=== PATIENT | male | born 1960 | race African-American/Black ===

== ENCOUNTER → 2017-04-02 | Outpatient (CLI) | payer OTHER ==
--- NOTE | 2017-04-02 18:48 | RADIOLOGY REPORT (SQ) ---
EXAM DESCRIPTION: CT CHEST WITH; CT ABD/PELVIS WITH IV ONLY COMPLETED DATE/TIME: 04/02/2017 3:19 pm REASON FOR STUDY: ABN WEIGHT LOSS R63.4 ABNORMAL WEIGHT LOSS COMPARISON: 01/12/2014 TECHNIQUE: CT scan of the chest performed with intravenous contrast using helical scanning technique . Images reviewed with lung, soft tissue and bone windows. Reconstructed coronal and sagittal MPR im ages reviewed. All images stored on PACS. Patient was injected with 76 mL of IV Isovue 370 without complication. Patient's creatinine is 0.8. CT scan of the abdomen and pelvis performed without intravenous contrast and withoutoral contrast usi ng helical scanning technique with dynamic intravenous contrast injection. Images reviewed with lung , soft tissue and bone windows. Reconstructed coronal and sagittal MPR images reviewed. All images stored on PACS. All CT scanners at this facility use dose modulation, iterative reconstruction, and/or weight based d osing when appropriate to reduce radiation dose to as low as reasonably achievable (ALARA). [facility]: Dose Right [facility]: CareDose [facility]: Dose Right [facility]: Teradose 4D [facility]: Sentisis RADIATION DOSE: CT Rad equipment meets quality standard of care and radiation dose reduction techniq ues were employed. CTDIvol: 4.4 - 4.5 mGy. DLP: 591 mGy-cm. mGy. LIMITATIONS: No oral contrast FINDINGS: CHEST: AXILLAE: No adenopathy. CHEST WALL: No masses. No subcutaneous air. LUNGS: No nodules or masses. No pneumothorax. No infiltrates. PLEURA: No effusions. No calcifications. THYROID: No masses or significant asymmetry. HILAR AND MEDIASTINAL STRUCTURES: No identified masses or abnormal nodes. AORTA AND GREAT VESSELS: No aneurysm. HEART: No pericardial effusion. HARDWARE AND LIFELINES: None. BONES: No significant finding. OTHER: No other significant finding. ABDOMEN AND PELVIS: LIVER: Normal size. No masses. No dilated ducts. SPLEEN: Normal size. No focal lesions. PANCREAS: No masses. No significant calcifications. No adjacent inflammation or peripancreatic flui d collections. Pancreatic duct not dilated. GALLBLADDER: No identified stones by CT criteria. No inflammatory changes to suggest cholecystitis. ADRENAL GLANDS: No significant masses or asymmetry. RIGHT KIDNEY AND URETER: No solid masses. No cysts. No significant calcifications. No hydronephr osis or hydroureter. LEFT KIDNEY AND URETER: No solid masses. Left midpole 1.5 cm simple cyst. No significant calcifica tions. No hydronephrosis or hydroureter. AORTA AND VESSELS: No aneurysm. No abdominal aortic dissection. Bilateral duplicated renal arteries , an anatomic variant. About 50% narrowing proximal right common iliac artery on coronal reconstruct ion image 32 RETROPERITONEUM: No retroperitoneal adenopathy, hemorrhage or masses. Benign cisterna Chyli between the aorta and vena cava at the level of the renal veins, 2.5 x 1.5 cm in size, unchanged from 2014 APPENDIX: Normal. LARGE AND SMALL BOWEL: No dilatation. No masses. No wall thickening. ABDOMINAL WALL: No hernia or masses. PERITONEAL CAVITY: No free air. No free fluid. No peritoneal implants or masses. PELVIS: No mass or free fluid. Normal bladder. BONES: No significant or acute findings. OTHER: No other significant finding. IMPRESSION: No CT findings over the chest abdomen or pelvis to explain history of abnormal weight lo ss TECHNICAL DOCUMENTATION: JOB ID: [id number] Quality ID # [id number]: Final reports with documentation of one or more dose reduction techniques (e.g., Au tomated exposure control, adjustment of the mA and/or kV according to patient size, use of iterative reconstruction technique) 2010 [employer].- All Rights Reserved
== END ==
LOC: RAD 14:22
PROVIDERS: ATTEND Internal Medicine
DX: R63.4 Abnormal weight loss (principal)
CPT/HCPCS: 71260; 74177; 82565

== ENCOUNTER → 2017-04-10 | Outpatient (CLI) | payer OTHER ==
--- NOTE | 2017-04-10 13:31 | RADIOLOGY REPORT (SQ) ---
EXAM DESCRIPTION: NM WHOLE BODY BONE SCAN COMPLETED DATE/TIME: 04/10/2017 12:25 pm REASON FOR STUDY: ABN WEIGHT LOSS (R63.4) R63.4 ABNORMAL WEIGHT LOSS COMPARISON: CT abdomen pelvis 01/12/2014, 04/02/2017, CT chest 04/02/2017 RADIONUCLIDE AND DOSE: 22 millicuries Tc99m HDP. The route of agent administration: Intravenous. ADDITIONAL DRUGS AND DOSES: None. TECHNIQUE: Routine delayed images at 3 hours post radionuclide injection acquired of the bony skelet on including anterior and posterior whole-body projections and additional focused images as needed. LIMITATIONS: None. FINDINGS: BONES: Normal visualization without areas of photopenia or increased bony uptake of radiop harmaceutical. KIDNEYS: Symmetric excretion without obstruction. OTHER: No other significant finding. IMPRESSION: NORMAL BONE SCAN. COMMENT: Quality measure 147: Current bone scan is compared with any available plain radiographs, p rior bone scans, and CT/MRI. TECHNICAL DOCUMENTATION: JOB ID: [id number] [employer] All Rights Reserved Reading location - IP/workstation name: [facility]-[email or web address]
== END ==
LOC: RAD 08:07
PROVIDERS: ATTEND Internal Medicine
DX: R63.4 Abnormal weight loss (principal)
CPT/HCPCS: 78306; A9561; Q9969

== ENCOUNTER 2019-12-24 17:09 | Emergency (ER) | payer OTHER ==
[2019-12-24 17:18] VITALS: BP 153/85
[2019-12-24] MEDS ORDERED: PENICILLIN V POTASSIUM 500 MG TABLET PO ONE (17:30)
[2019-12-24] MEDS ORDERED: IBUPROFEN 600 MG TABLET PO ONE (17:30)
[2019-12-24] MEDS ORDERED: LIDOCAINE 2% VISCOUS SOLN 15 ML UDCUP PO ONE (17:30)
--- NOTE | 2019-12-24 17:33 | ER Document Report ---
ED Oral Problem - General Chief Complaint: Toothache Stated Complaint: MOUTH PAIN Time Seen by Provider: 12/24/19 17:25 Primary Care Provider: JAILYN JOSE MD [Primary Care Provider] - Follow up as needed Mode of Arrival: Ambulatory Information source: Patient Notes: 59-year-old male presented to ED for multiple dental cavities to the upper and lower jaw. States the worst pain is in the upper left jaw. He does have multiple teeth in that area that are decayed. He states his pain is a 5 out of 5. He states when he came in for was to get some antibiotics so that he can handle the pain because he is not going to a dentist. He does smoke 1/2 pack a day drinks a sixpack a week and does not use any illicit drugs. He states he does have a history of high blood pressure. Constitutional: Negative for fever. HENT: Negative for sore throat. Patient has multiple dental cavities the worst pain is in the left upper jaw. He does have multiple dental cavities in this area. Eyes: Negative for visual changes. Cardiovascular: Negative for chest pain. Respiratory: Negative for shortness of breath. Gastrointestinal: Negative for abdominal pain, vomiting or diarrhea. Genitourinary: Negative for dysuria. Musculoskeletal: Negative for back pain. Skin: Negative for rash. Neurological: Negative for headaches, weakness or numbness. 10 point ROS negative except as marked above and in HPI. PHYSICAL EXAMINATION: GENERAL: Well-appearing, well-nourished and in no acute distress. HEAD: Atraumatic, normocephalic. EYES: Pupils equal round extraocular movements intact, conjunctiva are normal. ENT: Multiple dental cavities to the left upper jaw. He also has them throughout his mouth but right now the pain is to the left upper jaw. He does have mild gingivitis around the area that he stating is very painful NECK: Normal range of motion LUNGS: No respiratory distress Musculoskeletal: Normal range of motion NEUROLOGICAL: Normal speech, normal gait. PSYCH: Normal mood, normal affect. SKIN: Warm, Dry, normal turgor, no rashes or lesions noted. TRAVEL OUTSIDE OF THE [place] IN LAST 30 DAYS: No - HPI Patient complains to provider of: Toothache Onset: Last week Onset: Gradual Quality of pain: Sharp, Throbbing Severity: Severe Pain Level: 5 Associated symptoms: Jaw pain, Toothache Worsened by: Nothing Relieved by: Nothing Similar symptoms previously: Yes Recently seen / treated by doctor/dentist: No - Related Data Allergies/Adverse Reactions: oxycodone Adverse Reaction (Verified 12/24/19 17:25) Home Medications: htn Past Medical History - General Information source: Patient - Social History Smoking Status: Current Every Day Smoker Cigarette use (# per day): Yes - Half pack a day Chew tobacco use (# tins/day): No Smoking Education Provided: Yes - 3 minutes Frequency of alcohol use: Heavy Drug Abuse: None Lives with: Family Family History: Reviewed & Not Pertinent Patient has homicidal ideation: No - Past Medical History Cardiac Medical History: Reports: Hx Hypertension Pulmonary Medical History: Reports: None EENT Medical History: Reports: None Neurological Medical History: Reports: None Endocrine Medical History: Reports: None Renal/ Medical History: Reports: None Malignancy Medical History: Reports None GI Medical History: Reports: None Musculoskeletal Medical History: Reports None Skin Medical History: Reports None Psychiatric Medical History: Reports: None Traumatic Medical History: Reports: None Infectious Medical History: Reports: None Surgical Hx: Negative Past Surgical History: Reports: None - Immunizations Immunizations up to date: Yes Hx Diphtheria, Pertussis, Tetanus Vaccination: Yes Physical Exam - Vital signs Vitals: Temp Pulse Resp BP Pulse Ox 98.2 F 88 16 153/85 H 99 12/24/19 17:13 12/24/19 17:13 12/24/19 17:13 12/24/19 17:13 12/24/19 17:13 Course - Re-evaluation Re-evalutation: 12/24/19 22:01 Presentation is most consistent with likely an infected tooth. Airway is patent. Vitals within normal limits. Patient is able swallow without any difficulty. There is no significant facial swelling. No evidence of Bean angina, apical abscess, or airway obstruction. Patient will be started on antibiotics. I've instructed to follow-up with dentistry as earliest ability for definitive management. At this time will discharge with return precautions and follow-up recommendations. Verbal discharge instructions given a the bedside and opportunity for questions given. Medication warnings reviewed. Patient is in agreement with this plan and has verbalized understanding of return precautions and the need for primary care follow-up in the next 24-72 hours. - Vital Signs Vital signs: Temp Pulse Resp BP Pulse Ox 98.2 F 88 16 153/85 H 99 12/24/19 17:25 12/24/19 17:13 12/24/19 17:13 12/24/19 17:13 12/24/19 17:13 Discharge - Discharge Clinical Impression: Pain due to dental caries Condition: Stable Disposition: HOME, SELF-CARE Additional Instructions: TOOTHACHE: Your pain is due to dental decay. The tooth must be repaired in order for you to feel better. You will, therefore, be referred to a dentist. We do not have dentists on the staff at [facility]. Severe swelling or drainage around a tooth usually means a dental abscess. This also requires evaluation and treatment by the dentist, but antibiotics may be prescribed while awaiting dental treatment. You should be rechecked immediately if you develop major swelling of the face, increasing pain, a lump in the jaw or gums, headache, difficulty swallowing, or fever. PENICILLIN V K: You have been given a prescription for Penicillin VK. Your physician has determined that this is the best antibiotic for your condition. Pen VK can be taken with meals, however more of the antibiotic gets into the bloodstream if it's taken on an empty stomach. Penicillin usually has no side effects. However, allergy to penicillins is common. If you have had an allergic reaction to any drug of the penicillin family, you should never take any other penicillin. Notify your doctor at once if you develop hives, itching, swelling, faintness, or shortness of breath. Ibuprofen Ibuprofen is an excellent, safe drug for pain control. In addition, it has potent antiinflammatory effects which are beneficial, especially in the treatment of injuries, arthritis, or tendonitis. It's best to take ibuprofen with food. Persons with ulcer disease or allergy to aspirin should notify their physician of this before taking ibuprofen. Take the medication exactly as prescribed. Don't take additional doses unless instructed to do so by your doctor. If you develop wheezing, shortness of breath, hives, faintness, stomach pain, vomiting, or dark black stools, return for re-evaluation at once. You have been given a syringe of viscous lidocaine. Please place a small amount of this on your finger and rub it on the tooth and gums that are affected. Please do this no more often than every 4 hours. If you do it more often than every 4 hours it can erode the skin on your gums and cause more pain and problems. Salt and soda solution gargle 1 quart of water 1 tablespoon of salt 1 teaspoon of baking soda Mixed 3 ingredients together and boil for 1 minute Placed in a covered quart jar Use 1/2 ounce of cold solution to gargle 3 times a day FOLLOW-UP CARE: You have been referred for follow-up care to the dentists listed below. Call the dentists office for an appointment as you were instructed or within the next two days. If you experience worsening or a significant change in your symptoms, notify the physician immediately or return to the Emergency Department at any time for re-evaluation. [facility] [address] [place] [address] [facility] [address] [facility] [address] [facility]) [facility] [address] [facility] [email or web address] [address] [place] [address] Sunday- 8:00am to 5:00 pm Will see patients from other [facility]. Charges based on income and family size and accepts Medicare, Medicaid, and Insurances Will pull molars [facility] [id number] Hours of Operation 8:00 am - 4:30 pm weekdays The following dental offices accept Medicaid: [facility] Dr. Joya Dr. Johnson Dr. Cotter Dr. Gonzalez Lauro Guerrero [place], and [facility] Dr. Hernandez ([place]) Dr. Martin ([place]) [facility] Drs. Hugo and Beto ([place]) Dr. Mayer ([place]) [facility] Dr. Mckeon ([place]) Drs. Engel and ([place]) Medicaid Care Line Prescriptions: Penicillin V Potassium [Penicillin Vk 500 mg Tablet] 500 mg PO BID #20 tablet Forms: Elevated Blood Pressure Referrals: JAILYN JOSE MD [Primary Care Provider] - Follow up as needed
--- OUTSIDE RECORDS SUMMARY | 2019-12-26 14:45 | XMS REPORT ---
:1960 Author Organization [facility] Address [facility] [place] [address] [place] [address] Care Team Providers Name Role Phone [place] Pierretika Manoj Primary Care Physician Unavailable Allergies, Adverse Reactions, Alerts This patient has no known allergies or adverse reactions. Medications Ordered Filled Start Stop Current Ordering Indication Dosage Frequency Signature Comments Components Medication Medication Date Date Medication? Clinician (SIG) Name Name Tamsulosin Yes QD 1 capsule HCl 0.4 MG - Orally 00:00: Once a day 00 Amoxicillin TID 1 tablet 500 MG 07-07 06- Orally 00:00: 00:00 three 00 :00 times a day Silenor 6 2017-02 Yes QD 1 tablet MG 1-08 at bedtime 00:00: Orally 00 Once a day Lisinopril- Yes QD TAKE 1 Hydrochloro TABLET BY thiazide MOUTH 20-12.5 MG EVERY DAY Orally Once a day Problems Condition Condition Condition Status Onset Resolution Last Treatin g Comments Name Details Category Date Date Treatment Clinician Date Streptococc Acute Problem Active al sore streptococc 802 throat al 00:00: tonsillitis 00 , unspecified Sexually Encounter Problem Active transmitted for 3-13 infectious screening 00:00: disease for 00 infections with a predominant ly sexual mode of transmissio n Insomnia Insomnia, Problem Active 2017-02 unspecified 1-08 00:00: 00 Underweight Underweight Problem Active 5-05 00:00: 00 Lower Benign Problem Active urinary prostatic 2-15 tract hyperplasia 00:00: symptoms with lower 00 due to urinary benign tract prostatic symptoms hypertrophy Abnormal Abnormal Problem Active weight loss weight loss 2-15 00:00: 00 Nicotine Nicotine Problem Active dependence dependence, 8-07 cigarettes, 00:00: with other 00 nicotine-in duced disorders Screening Encounter Problem Active for for 4-07 malignant screening 00:00: neoplasm of for 00 colon malignant neoplasm of colon Urticaria Urticaria, Problem Active unspecified 05-19 00:00: 00 Essential Essential Problem Active hypertensio (primary) 05-19 n hypertensio 00:00: n 00 Procedures This patient has no known procedures. Results Test Description Test Time Test Comments Text Results Atomic Results Result Comments TSH + FREE T4 2019-04-25 00:00:00 Test Item Value Reference Range Comments [id number] (test code = [id number]) 1.048 0.340-4.410 FREET4 (test code = FREET4) 0.99 0.61-1.12 LAB [id number] 00:00:00 Test Item Value Reference Range Comments PDF (test code = PDF) LAB HEPATITIS C AB WITH [id number] 00:00:00 Test Item Value Reference Range Comments HepatitisCAntibody (test code = NONREACTIVE HepatitisCAntibody) SignaltoCut-off (test code = SignaltoCut-off) 0.02 CBC + AUTOMATED [id number] 00:00:00 Test Item Value Reference Range Comments WBC (test code = WBC) 8.1 4.2-11.8 RBC (test code = RBC) 4.12 4.4-5.8 HEMOGLOBIN (test code = HEMOGLOBIN) 14.5 13.1-17.1 HEMATOCRIT (test code = HEMATOCRIT) 45 40-50.4 MCV (test code = MCV) 109 80.8-97.4 MCH (test code = MCH) 35.2 26.6-33.0 MCHC (test code = MCHC) 32.1 32-34.9 RDW (test code = RDW) 14.8 11.8-15.5 PLATELET (test code = PLATELET) 224 147-365 MPV (test code = MPV) 9.16 6.00-12.00 SEGMENTED% (test code = SEGMENTED%) 64.1 43.7-73.5 SEGMENTED# (test code = SEGMENTED#) 5.2 1.9-7.5 LYMPHOCYTES% (test code = LYMPHOCYTES%) 29.21 17.9-45. 1 LYMPHOCYTES# (test code = LYMPHOCYTES#) 2.4 1-4 MONOCYTES% (test code = MONOCYTES%) 4.9 3.8-10 MONOCYTES# (test code = MONOCYTES#) 0.4 0.2-0.9 EOSINOPHILS% (test code = EOSINOPHILS%) 1.32 0.0-6.1 EOSINOPHILS# (test code = EOSINOPHILS#) 0.11 0.0-0.5 BASOPHILS% (test code = BASOPHILS%) 0.43 0.0-0.9 BASOPHILS# (test code = BASOPHILS#) 0.03 0.0-0.1 COMPREHENSIVE [id number] 00:00:00 Test Item Value Reference Range Comments SODIUM (test code = SODIUM) 138 136-145 POTASSIUM (test code = POTASSIUM) 3.9 3.5-5.1 CHLORIDE (test code = CHLORIDE) 100 98-107 CARBONDIOXIDE (test code = CARBONDIOXIDE) 26.0 17-32 GLUCOSE (test code = GLUCOSE) 88 70-99 BUN (test code = BUN) 16 7-25 CREATININESERUM (test code = CREATININESERUM) 0.84 0. 7-1.3 BUN/CREATININERATIO (test code = BUN/CREATININERATIO) 19 8-28 BILIRUBIN,Total (test code = BILIRUBIN,Total) 0.8 0. 2-1.0 CALCIUM (test code = CALCIUM) 9.4 8.6-10.5 PROTEINTOTAL (test code = PROTEINTOTAL) 7.0 6.6-8.2 ALBUMIN (test code = ALBUMIN) 4.4 3.5-5.7 ALK.PHOSPHATASE (test code = ALK.PHOSPHATASE) 63 34 -104 ALT(SGPT) (test code = ALT(SGPT)) 14 7-52 AST(SGOT) (test code = AST(SGOT)) 18 11-39 GLOBULIN (test code = GLOBULIN) 2.6 1.8-4.0 A/GRATIO (test code = A/GRATIO) 1.7 0.8-2.7 GLOMERULARFILT.RATE (test code = GLOMERULARFILT.RATE) 99 >60 HEPATITIS [id number] 00:00:00 Test Item Value Reference Range Comments HEPATITISATOTALAB (test code = React NONREACTIVE HEPATITISATOTALAB) HEPATITISBSURF.AG. (test code = NONREACTIVE NONREACTIVE HEPATITISBSURF.AG.) HEPATITISBSURFACEAB (test code = 7.3 0-9.9 HEPATITISBSURFACEAB) HEPATITISBCOREANTIBODY (test code = NON REAC NON REAC HEPATITISBCOREANTIBODY) HIV COMBO AG/AB 4TH [id number] 00:00:00 Test Item Value Reference Range Comments HIVCOMBOAG/[id number] (test code = NONREACTIVE NONREACTIVE HIVCOMBOAG/GI2LNNKN) LIPID [id number] 00:00:00 Test Item Value Reference Range Comments CHOLESTEROL (test code = CHOLESTEROL) 224 <200 TRIGLYCERIDES (test code = TRIGLYCERIDES) 101 10-149 HDLCHOLESTEROL (test code = HDLCHOLESTEROL) 80 40-1 99 LDL/HDLRATIO (test code = LDL/HDLRATIO) 1.55 0.00-4.9 7 LDLCHOLESTEROL,calc. (test code = 124 <100 LDLCHOLESTEROL,calc.) VLDLCHOLESTEROL,calc. (test code = 20 5-40 VLDLCHOLESTEROL,calc.) CHOLESTEROL/HDLRATIO (test code = 2.80 2.00-5.00 CHOLESTEROL/HDLRATIO) NON-HDLCHOLESTEROL (test code = NON-HDLCHOLESTEROL) 144 0-159 URIC [id number] 00:00:00 Test Item Value Reference Range Comments URICACID (test code = URICACID) 6.1 4.4-7.6 [id number] 00:00:00 Test Item Value Reference Range Comments COLOR (test code = COLOR) YELLOW YELLOW CLARITY (test code = CLARITY) CLEAR CLEAR SPECIFICGRAVITY (test code = SPECIFICGRAVITY) 1.017 1. 005-1.025 pH (test code = pH) 5.0 5.0-8.5 URINEPROTEIN (test code = URINEPROTEIN) NEGATIVE NEGATIVE URINEGLUCOSE (test code = URINEGLUCOSE) NEGATIVE NEGATIVE URINEKETONE (test code = URINEKETONE) NEGATIVE NEGATIVE URINEBILIRUBIN (test code = URINEBILIRUBIN) NEGATIVE NEGA TIVE URINEBLOOD (test code = URINEBLOOD) SMALL NEGATIVE URINENITRITE (test code = URINENITRITE) NEGATIVE NEGATIVE UROBILINOGEN (test code = UROBILINOGEN) 0.2 0.2-1.0 LEUKOCYTE (test code = LEUKOCYTE) NEGATIVE NEGATIVE BACTERIA (test code = BACTERIA) OCCASIONAL NONE-OCC MUCOUS (test code = MUCOUS) OCCASIONAL NONE-OCC SQUAMOUSEPITHELIAL (test code = <1 /HPF 0-2 SQUAMOUSEPITHELIAL) REDBLOODCELLS (test code = REDBLOODCELLS) 0-2 0-2 WHITEBLOODCELLS (test code = WHITEBLOODCELLS) 0-5 0- 5 Assessments Condition Name Status Diagnosis Date Treating Clinici an - Acute streptococcal tonsillitis, Active [place], [place] unspecified J03.00 - Benign prostatic hyperplasia with lower Active [place], [place] urinary tract symptoms N40.1 - Essential (primary) hypertension I10 Active [place], [place] - Essential (primary) hypertension I10 Active [place]oh, [place] - Encounter for screening for infections Active [place], [place] with a predominantly sexual mode of transmission Z11.3 - Body mass index (BMI) 24.0-24.9, adult Active [place]oh, [place] Z68.24 - Essential (primary) hypertension I10 Active [place]oh, [place] - Insomnia, unspecified G47.00 Active O [place]uoboh, [place] - Nicotine dependence, cigarettes, with Active [place]oh, [place] other nicotine-induced disorders F17.218 - Essential (primary) hypertension I10 Active [place]oboh, [place] - Underweight R63.6 Active Ojebuoboh, I b[place] - Abnormal weight loss R63.4 Active Oje buoboh, [place] - Benign prostatic hyperplasia with lower Active [place]oh, [place] urinary tract symptoms N40.1 - Essential (primary) hypertension I10 Active [place]oh, [place] - Vitamin B12 deficiency anemia, Active [place]oboh, [place] unspecified D51.9 - Nicotine dependence, cigarettes, with Active [place]oh, [place] other nicotine-induced disorders F17.218 - Essential (primary) hypertension I10 Active [place]oboh, [place] - Essential (primary) hypertension I10 Active [place]oh, [place] - Conjunctival edema, right eye H11.421 Active [place]oboh, [place] - Conjunctival hyperemia, right eye H11.431 Active [place]oboh, [place] - Unspecified conjunctivitis H10.9 Active [place]oboh, [place] - Essential (primary) hypertension I10 Active [place]oboh, [place] - Urticaria, unspecified L50.9 Active O j[place]uoboh, [place] - Encounter for screening for malignant Active O[place]uoboh, [place] neoplasm of colon Z12.11 - Essential (primary) hypertension I10 Active [place]oh, [place] - Hypertension 401.9 Active [place]oh, [place] - Nondependent tobacco use disorder 305.1 Active [place]oboh, [place] Encounters Start End Encounter Admission Attending Care Care Encounter Date/Time Date/Time Type Type Clinicians Facility Department ID 2019-07-25 2019-07-25 [facility] [id number] 00:00:00 00:00:00 PA 2019-07-08 2019-07-08 [facility] [place] [id number] 00:00:00 00:00:00 PA 2019-05-13 2019-05-13 [id number] 00:00:00 00:00:00 PA PA 2019-04-25 2019-04-25 [facility] [id number] 00:00:00 00:00:00 PA PA 2017-12-20 2017-12-20 [facility] [id number] 00:00:00 00:00:00 PA PA 2017-04-19 2017-04-19 [facility] 24 [id number] 00:00:00 00:00:00 PA PA 2017-03-29 2017-03-29 [facility] [id number] 00:00:00 00:00:00 PA PA 2016-09-18 2016-09-18 [facility] 22 [id number] 00:00:00 00:00:00 PA PA 2016-08-22 2016-08-22 [facility] 22 [id number] 00:00:00 00:00:00 PA PA 2016-06-06 2016-06-06 [facility] 22 [id number] 00:00:00 00:00:00 PA PA 2016-05-23 2016-05-23 [facility] [id number] 00:00:00 00:00:00 PA PA 2016-05-19 2016-05-19 [facility] 21 [id number] 00:00:00 00:00:00 PA PA 2015-06-24 2015-06-24 [facility] 19 [id number] 00:00:00 00:00:00 PA PA 2015-06-09 2015-06-09 [facility] 19 [id number] 00:00:00 00:00:00 PA PA 2014-01-19 2014-01-19 [facility] 14 [id number] 00:00:00 00:00:00 PA PA Social History This patient has no known social history. Vital Signs Vital Name Observation Time Observation Value Comments height 2019-04-25 10:30:00 69.5 [in_us] weight 2019-04-25 10:30:00 166.8 [lb_av] bmi 2019-04-25 10:30:00 24.28 kg/m2 heart rate 2019-04-25 10:30:00 79 /min temperature 2019-04-25 10:30:00 97.8 [degF] blood pressure systolic 2019-04-25 10:30:00 131 mm[Hg] blood pressure diastolic 2019-04-25 10:30:00 84 mm[Hg] height 2019-07-08 13:30:00 69.5 [in_us] weight 2019-07-08 13:30:00 163.8 [lb_av] bmi 2019-07-08 13:30:00 23.84 kg/m2 heart rate 2019-07-08 13:30:00 79 /min blood pressure systolic 2019-07-08 13:30:00 121 mm[Hg] blood pressure diastolic 2019-07-08 13:30:00 73 mm[Hg]
== END 2019-12-24 17:38 | disposition home or self-care (01) ==
LOC: ER 17:09
DX: K02.9 Dental caries, unspecified (principal); F17.210 Nicotine dependence, cigarettes, uncomplicated; I10 Essential (primary) hypertension
CPT/HCPCS: 99283; J3490